=== PATIENT | female | born 1980 | race Caucasian/White ===

== ENCOUNTER 2016-10-01 12:10 | Inpatient (IN) | payer BC ==
[~2016-10-01] VITALS: Ht 165.1 cm; Wt 75.3 kg
[~2016-10-01 12:10] MED LIST: VALA500
[2016-10-05] VITALS (14 sets, daily range): BP systolic 101–133; BP diastolic 56–87; PULSE 64–110; RESP 16–18; TEMP 98–98.7
[2016-10-05] MEDS ORDERED: CALNTAB (05:39)
[2016-10-05] MEDS ORDERED: PERC5TAB12 PO (05:39)
[2016-10-05] MEDS ORDERED: ceFAZolin 2 GM PREMIX 50 ML IV SCH (06:00)
[2016-10-05] MEDS ORDERED: LACTATED RINGER'S 1000 ML IV ONE (06:00)
[2016-10-05] MEDS ORDERED: CITRIC ACID-SODIUM CITRATE LIQ 30 ML UDC PO SCH (06:00)
[2016-10-05] MEDS ORDERED: LACTATED RINGER'S 1000 ML IV SCH (06:00)
--- NOTE | 2016-10-05 06:19 | MH ---
cc: CCList DATE OF ADMISSION: 10/05/2016 DATE OF 1980 ADMISSION DIAGNOSES 1. Term . 2. Right kidney obstruction due to renal stone. 3. Previous . HISTORY OF PRESENT ILLNESS The patient is a 35-year-old white female para 1-0-1-1 with an EDC of 10/12/2016 by known IUI dates. Her course was benign until 08/19/2016 when she developed a right kidney obstruction due to a large stone, admitted to [facility], had a right percutaneous nephrostomy tube placed, has been maintained since that time for urinary drainage. ADDITIONAL PAST MEDICAL HISTORY 1. 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 2. She had breast augmentation in 2008. 3. Her first delivery by for failure to progress in 2005. 4. A spontaneous miscarriage in 2015. SOCIAL HISTORY She is homemaker, . Alcohol, tobacco and drugs are none. FAMILY HISTORY Non-contributory. PHYSICAL EXAMINATION GENERAL: This is a well-developed, well-nourished white female. HEENT EXAM: Normal. CHEST: Clear. HEART: Regular rate. BREASTS: Symmetrical. ABDOMEN: Gravid. EFW of 3300 grams. PELVIC EXAM: Cervix is closed. EXTREMITIES: Normal. ASSESSMENT As above. PLAN She is now admitted for repeat section and eventual treatment of her right kidney stone. While in the office I have explained the procedures, the risks, benefits and complications. The patient would like to proceed. MD LISET Finch/CHUCKIE /5:45 AM /6:13 AM
[2016-10-05 06:21] LABS: AUTOMATED NEUTROPHIL # 9.1 TH/MM3 (1.8-7.7); BASOPHIL % 0.4 % (0.0-2.0); EOSINOPHIL # 0.1 TH/MM3 (0-0.4); EOSINOPHIL % 0.6 % (0.0-4.0); HEMO FLAGS DIFF FINAL; LYMPH % 13.6 % (9.0-44.0); LYMPHOCYTE # 1.6 TH/MM3 (1.0-4.8); MEAN CELL VOLUME 83.2 FL (80.0-100.0); MEAN CORPUSCULAR HEMOGLOBIN 29.1 PG (27.0-34.0); MONO % 6.8 % (0.0-8.0); NEUT % 78.6 % (16.0-70.0); PLATELET COUNT 280 TH/MM3 (150-450); RED BLOOD COUNT 4.21 MIL/MM3 (4.00-5.30); RED CELL DISTRIBUTION WIDTH 15.7 % (11.6-17.2); WHITE BLOOD COUNT 11.6 TH/MM3 (4.0-11.0)
[2016-10-05 06:41] LABS: BLOOD, URINE NEG (NEG); COMMENT (UR) CULT NOT INDICATED; CULTURE IF INDICATED CULT NOT INDICATED; GLUCOSE,URINE NEG (NEG); KETONE, URINE NEG (NEG); MUCUS URINE FEW /lpf (OCC); NITRITE,URINE NEG (NEG); PH, URINE 7.5 (5.0-8.5); SQUAMOUS EPITHELIAL CELL URINE 3 /hpf (0-5); URINE COLOR YELLOW (YELLW/STRAW)
[2016-10-05] MEDS ORDERED: ACETAMINOPHEN 1000 MG/100 ML VIAL IV ONE (07:11)
[2016-10-05] MEDS ORDERED: ONDANSETRON HCL 4 MG/2 ML VIAL ONE (07:11)
[2016-10-05] MEDS ORDERED: ePHEDrine/NS 25 MG/5 ML SYR ONE (07:11)
[2016-10-05] MEDS ORDERED: MORPHINE SULFATE PF 5 MG/10 ML VIAL ONE (07:11)
[2016-10-05] MEDS ORDERED: OXYTOCIN 10 UNIT/ML AMP ONE ×2 (07:12→07:16)
[2016-10-05] MEDS ORDERED: SODIUM CHLORIDE 0.9% FLUSH 5 ML FLUSH IV PRN (07:30)
[2016-10-05] MEDS ORDERED: KETOROLAC TROMETHAMINE 60 MG/2 ML (IM) VIAL IM PRN (07:30)
[2016-10-05] MEDS ORDERED: ONDANSETRON HCL 4 MG/2 ML VIAL IVP PRN (07:30)
[2016-10-05] MEDS ORDERED: ZOLPIDEM TARTRATE 5 MG TAB PO PRN (07:30)
[2016-10-05] MEDS ORDERED: MEASLES, MUMPS, RUBELLA VACCINE 0.5 ML VIAL SQ ONE (07:30)
[2016-10-05] MEDS ORDERED: OXYTOCIN 30 UNITS-500ML PREMIX 500 ML IV ONE (07:30)
[2016-10-05] MEDS ORDERED: oxyCODONE/ACETAMINOPHEN 5 MG/325 MG TAB PO PRN (07:30)
[2016-10-05] MEDS: ACETAMINOPHEN 1000 MG/100 ML VIAL IV SCH ×3 (08:02→22:35)
--- NOTE | 2016-10-05 08:49 | MP ---
cc: ALANAKELLY DATE OF SURGERY: 10/05/2016 PREOPERATIVE DIAGNOSIS 1. Term . 2. Previous . 3. Right kidney obstruction with stone, status post right percutaneous nephrostomy placement. POSTOPERATIVE DIAGNOSIS 1. Term . 2. Previous . 3. Right kidney obstruction with stone, status post right percutaneous nephrostomy placement. 4. Delivered. PROCEDURE Repeat low transverse section. ANESTHESIA Spinal. SURGEON Kelly Lopez MD [employer] SALESPERSON RIVKA Lopez ESTIMATED BLOOD LOSS About 600 cc. FLUIDS Two liters crystalloid. OBJECTIVE FINDINGS Following the induction of adequate spinal anesthesia, the patient was prepped and draped supine on the operating table in the left lateral tilt position in the usual sterile fashion with the bladder being drained via Conrad catheterization. The abdomen was opened through a Pfannenstiel incision using a knife to excise her old scar. The fascia was opened transversely and stripped from the muscles. The rectus muscle was split in the midline and the peritoneum opened sharply without incident. The bladder flap was taken down sharply and retracted inferiorly with a [place] blade. The lower uterine segment was incised transversely with a knife and extended with blunt dissection. The membranes revealed clear fluid. The baby was in the LOT position. The vacuum extractor was applied to the occiput and used to gently lift the head through the uteroabdominal wound. The mouth was suctioned, the cord clamped and cut, and the baby passed to the awaiting team, a viable vigorous male, Apgars 9 and 9, weight 7 pounds 5 ounces. Cord blood was collected for typing. The placenta was manually removed and the uterine cavity cleaned with laps. The uterus was exteriorized and closed in two layers of running suture, the first with a running locking stitch of 3-0 Vicryl, the second with a running imbricating stitch of 3-0 Vicryl. Posterior inspection revealed the uterus, tubes and ovaries to be normal. The uterus was placed in the abdominal cavity. Irrigation was performed. No bleeding was evident. The bladder flap was closed with a running stitch of 3-0 Vicryl. Inspection revealed normal tubes and ovaries, no bleeding, normal cul-de-sacs. All instruments were removed. Counts were correct. The anterior peritoneum was closed with a running stitch of 2-0 Vicryl. The fascia was closed with a running locking stitch of 3-0 Vicryl corner to midline and tied, subcu with running 3-0 Vicryl and skin with running subcuticular 3-0 Monocryl. Dermabond was applied. All counts were correct and the patient was awake and taken to the recovery room in good condition. MD LISET Finch/STARLA /8:20 AM /8:39 AM
[2016-10-05] MEDS ORDERED: SODIUM CHLORIDE 0.9% FLUSH 5 ML FLUSH IV SCH (09:00)
[2016-10-05] MEDS ORDERED: OXYTOCIN 30 UNITS-500ML PREMIX 500 ML ONE (09:06)
[2016-10-05] MEDS ORDERED: EPIDURAL-DIPHENHYDRAMINE HCL 50 MG CAP PO PRN (11:30)
[2016-10-05] MEDS ORDERED: EPIDURAL-NO SYSTEMIC NARCOTICS XX PRN (11:30)
[2016-10-05] MEDS ORDERED: EPIDURAL-DIPHENHYDRAMINE HCL 50 MG/ML VIAL IV PUSH PRN (11:30)
[2016-10-05] MEDS ORDERED: EPIDURAL-DO NOT ADMINISTER ANTICOAGULANTS XX PRN (11:30)
[2016-10-05] MEDS ORDERED: EPIDURAL-NALOXONE HCL 0.4 MG/ML AMP IV PRN (11:30)
[2016-10-05] MEDS ORDERED: KETOROLAC TROMETHAMINE 30 MG/ML (IVP) VIAL IV PUSH PRN (12:30)
--- NOTE | 2016-10-05 12:53 | PD.CONS ---
HPI Service Urology Consult Requested By Reason for Consult Status post placement of right nephrostomy tube during recent . Primary Care Physician No Primary Care Physician Diagnosis: History of Present Illness 35-year-old female with recent history of an obstructing 8 mm right ureteral calculus that developed during her recent . Patient is status post placement of a right nephrostomy tube in early August of this year. Patient underwent delivery of her son via section early this morning and a urology consult was placed regarding further management of the right ureteral stone. Patient reports that recently she has not had any problems with the right nephrostomy tube causing any discomfort or pain in that it had been draining well. She is optimistic that perhaps she may have passed the stone. I discussed further imaging studies to reassess the stone status prior to recommending any further recommendations. Review of Systems Constitutional: DENIES: Fever, Chills Gastrointestinal: DENIES: Abdominal pain Genitourinary: DENIES: Hematuria Musculoskeletal: DENIES: Back pain Except as stated in HPI: all other systems reviewed are Neg Past Family Social History Past Medical History Right ureteral calculus Cleft palate Past Surgical History section/present admission Prior section for failure to progress in 2006 Status post recent right nephrostomy tube placement Status post repair of cleft lip/palate Reported Medications Refer to EMR Allergies: Uncoded Allergies: MEDICAL TAPE (Adverse Reaction, Unknown, Hives, 10/05/16) Active Ordered Medications Refer to EMR Family History Reviewed and noncontributory Social History Denies tobacco, alcohol or intravenous drug abuse Physical Exam Vital Signs Vital Signs Date Time Temp Pulse Resp B/P Pulse Ox O2 Delivery O2 Flow Rate FiO2 10/05/16 11:10 98.0 16 10/05/16 11:10 78 120/76 10/05/16 09:30 65 10/05/16 09:30 18 109/56 10/05/16 09:23 98.0 10/05/16 09:19 65 18 114/57 10/05/16 09:10 64 18 108/60 10/05/16 08:46 80 18 105/68 10/05/16 08:34 74 18 105/64 10/05/16 08:24 75 18 120/77 10/05/16 08:24 98.2 10/05/16 07:08 110 133/82 10/05/16 06:00 98.2 10/05/16 06:00 18 10/05/16 05:54 102 126/87 Physical Exam GENERAL: This is a well-nourished, well-developed patient, in no apparent distress. SKIN: No rashes, ecchymoses or lesions. Cool and dry. HEAD: Atraumatic. Normocephalic. No temporal or scalp tenderness. EYES: Pupils equal round and reactive. Extraocular motions intact. No scleral icterus. No injection or drainage. ENT: Nose without bleeding, purulent drainage or septal hematoma. Throat without erythema, tonsillar hypertrophy or exudate. Uvula midline. Airway patent. NECK: Trachea midline. No JVD or lymphadenopathy. Supple, nontender, no meningeal signs. CARDIOVASCULAR: Regular rate and rhythm without murmurs, gallops, or rubs. RESPIRATORY: Clear to auscultation. Breath sounds equal bilaterally. No wheezes , rales, or rhonchi. GASTROINTESTINAL: Nondistended. Surgical dressing in place. : Right nephrostomy tube in place and draining well. MUSCULOSKELETAL: Extremities without clubbing, cyanosis, or edema. No joint tenderness, effusion, or edema noted. No calf tenderness. Negative Homans sign bilaterally. NEUROLOGICAL: Awake and alert. Cranial nerves II through XII intact. Motor and sensory grossly within normal limits. Five out of 5 muscle strength in all muscle groups. Normal speech. Laboratory Laboratory Tests Test 10/05/16 06:00 White Blood Count 11.6 Red Blood Count 4.21 Hemoglobin 12.3 Hematocrit 35.0 Mean Corpuscular Volume 83.2 Mean Corpuscular Hemoglobin 29.1 Mean Corpuscular Hemoglobin 35.0 Concent Red Cell Distribution Width 15.7 Platelet Count 280 Mean Platelet Volume 6.6 Neutrophils (%) (Auto) 78.6 Lymphocytes (%) (Auto) 13.6 Monocytes (%) (Auto) 6.8 Eosinophils (%) (Auto) 0.6 Basophils (%) (Auto) 0.4 Neutrophils # (Auto) 9.1 Lymphocytes # (Auto) 1.6 Monocytes # (Auto) 0.8 Eosinophils # (Auto) 0.1 Basophils # (Auto) 0.0 CBC Comment DIFF FINAL Differential Comment Urine Color YELLOW Urine Turbidity CLEAR Urine pH 7.5 Urine Specific [place] 1.012 Urine Protein NEG Urine Glucose (UA) NEG Urine Ketones NEG Urine Occult Blood NEG Urine Nitrite NEG Urine Bilirubin NEG Urine Urobilinogen LESS THAN 2.0 Urine Leukocyte Esterase NEG Urine RBC 2 Urine WBC 3 Urine Squamous Epithelial 3 Cells Urine Mucus FEW Microscopic Urinalysis Comment CULT NOT INDICATED Blood Type A POSITIVE Antibody Screen NEGATIVE Result Diagram: 10/05/16 0600 Assessment and Plan Assessment and Plan Urologic impression: Obstructing 8 mm right ureteral calculus managed with a right nephrostomy tube placed in early August of this year. Recommendations: #1 continue right nephrostomy tube to gravity drainage #2 CT scan stone protocol to reassess stone status #3 further recommendations pending review of CT scan Maxime Deleon MD Oct 05, 2016 12:53
[2016-10-05] MEDS ORDERED: LACTATED RINGER'S 1000 ML INJ 1,000 ML IV SCH (13:04)
[2016-10-05] MEDS ORDERED: OXYTOCIN 30 UNITS-500ML PREMIX 500 ML IV PRN (18:15)
[2016-10-06] MEDS: oxyCODONE/ACETAMINOPHEN 5 MG/325 MG TAB PO PRN ×4 (02:35→21:13)
[2016-10-06] MEDS: DOCUSATE SODIUM 50 MG/SENNA 8.6 MG TAB PO PRN ×3 (02:36→21:13)
[2016-10-06 03:45] VITALS: BP 121/77; PULSE 74; RESP 20; TEMP 98.1
[2016-10-06 06:02] LABS: AUTOMATED NEUTROPHIL # 9.6 TH/MM3 (1.8-7.7); BASOPHIL % 0.3 % (0.0-2.0); EOSINOPHIL # 0.2 TH/MM3 (0-0.4); EOSINOPHIL % 1.7 % (0.0-4.0); HEMATOCRIT 31.1 % (35.0-46.0); HEMO FLAGS DIFF FINAL; LYMPH % 11.9 % (9.0-44.0); LYMPHOCYTE # 1.4 TH/MM3 (1.0-4.8); MEAN CORPUSCULAR HGB CONC 34.1 % (32.0-36.0); NEUT % 80.1 % (16.0-70.0); PLATELET COUNT 233 TH/MM3 (150-450); RED BLOOD COUNT 3.66 MIL/MM3 (4.00-5.30); RED CELL DISTRIBUTION WIDTH 15.9 % (11.6-17.2)
[2016-10-06 06:36] LABS: BICARBONATE 27.5 MEQ/L (21.0-32.0); POTASSIUM 3.7 MEQ/L (3.5-5.1)
[2016-10-06] MEDS: IBUPROFEN 600 MG TAB PO PRN ×3 (07:56→21:13)
[2016-10-06 08:00] VITALS: BP 118/76; PULSE 84; RESP 18; TEMP 98.3
--- NOTE | 2016-10-06 09:26 | RADRPT ---
EXAM DATE/TIME: 10/06/2016 08:51 [facility] COMPARISON: No previous studies available for comparison. INDICATIONS : Status post right nephrostomy tube. Evaluate if stones are still present. ORAL CONTRAST: No oral contrast ingested. RADIATION DOSE: 15.21 CTDIvol (mGy) MEDICAL HISTORY : Renal calculi. SURGICAL HISTORY : section. ENCOUNTER: Initial ACUITY: 4 - 6 days PAIN SCALE: 3/10 LOCATION: Right flank TECHNIQUE: Volumetric scanning of the abdomen and pelvis was performed. Using automated exposure control and ad justment of the mA and/or kV according to patient size, radiation dose was kept as low as reasonably achievable to obtain optimal diagnostic quality images. FINDINGS: LOWER LUNGS: The visualized lower lungs are clear. LIVER: Homogeneous density without lesion. There is no dilation of the biliary tree. No calcified gallston es. SPLEEN: Normal size without lesion. PANCREAS: Within normal limits. KIDNEYS: Normal in size and shape. There is no mass or hydronephrosis. Percutaneous nephrostomy tube on the r ight. There are 2 punctate right-sided renal calculi measuring 2-3 mm. Several nonobstructing left-si ded renal calculi measuring 2-3 mm. No ureteral calculi. No hydronephrosis. ADRENAL GLANDS: Within normal limits. VASCULAR: There is no aortic aneurysm. BOWEL/MESENTERY: The stomach, small bowel, and colon demonstrate no acute abnormality. There is no free intraperitone al air or fluid. ABDOMINAL WALL: Postsurgical changes from recent section. RETROPERITONEUM: There is no lymphadenopathy. BLADDER: No wall thickening or mass. REPRODUCTIVE: Pneumoperitoneum. Enlarged uterus containing air within the endometrial cavity consistent with recent section. Minimal pelvic free fluid. INGUINAL: There is no lymphadenopathy or hernia. MUSCULOSKELETAL: Within normal limits for patient age. CONCLUSION: 1. Right nephrostomy tube without hydronephrosis. There are 2 punctate nonobstructing right-sided mallory al calculi. 2. Several punctate nonobstructing left-sided renal calculi. 3. Postsurgical changes and recent section. 4. Bibasilar atelectasis. Dariel Lucero MD on October 06, 2016 at 9:15 Board Certified Radiologist. This report was verified electronically.
--- NOTE | 2016-10-06 10:42 | HHI.PR ---
Subjective Remarks Denies any urologic complaints Objective Vital Signs Vital Signs Date Time Temp Pulse Resp B/P Pulse Ox O2 Delivery O2 Flow Rate FiO2 10/06/16 08:00 98.3 84 18 118/76 10/06/16 03:45 98.1 74 20 121/77 10/05/16 23:00 98.7 88 18 101/57 10/05/16 19:35 98.4 10/05/16 19:35 86 17 103/62 10/05/16 15:50 98.7 89 16 105/66 10/05/16 11:10 98.0 16 10/05/16 11:10 78 120/76 Result Diagram: 10/06/16 0530 10/06/[address] scan performed today and demonstrated bilateral punctate renal calculi. The previous obstructing 8 mm right sided stone was no longer present. Right nephrostomy tube in good position. Assessment and Plan Assessment and Plan Urologic impression: #1 the previous 8mm obstructing right ureteral calculus is no longer present #2 bilateral punctate nonobstructing renal calculi Recommendations: #1 interventional radiology to remove the right nephrostomy tube under fluoroscopy #2 will prescribe Urocit-K to aid in further kidney stone prevention #3 office follow up in 2-3 weeks to inspect nephrostomy tube site #4 will obtain a follow up KUB study in one year to reassess stone status Maxime Deleon MD Oct 06, 2016 10:42
[2016-10-06] MEDS ORDERED: UROCTAB2 PO (10:45)
[2016-10-06] MEDS ORDERED: IOHEXOL 350 MG/ML 50 ML BTL (for RAD DIAG) ONE (17:52)
[2016-10-06 20:00] VITALS: BP 112/68; PULSE 85; RESP 18; TEMP 98.3
[2016-10-06] MEDS: SIMETHICONE 80 MG CHEWABLE TAB PO PRN (21:13)
[2016-10-07] MEDS: oxyCODONE/ACETAMINOPHEN 5 MG/325 MG TAB PO PRN (04:56)
[2016-10-07] MEDS: SIMETHICONE 80 MG CHEWABLE TAB PO PRN (04:56)
[2016-10-07] MEDS: IBUPROFEN 600 MG TAB PO PRN (04:56)
[2016-10-07 05:00] VITALS: BP 137/84; PULSE 79; RESP 20; TEMP 98.2
--- NOTE | 2016-10-07 08:22 | HHI.DCPOC ---
Discharge Care Plan Report Symptoms to Your Doctor -Temperate above 100.5 degrees -Redness, of incision or excessive or foul smelling drainage -Unusual pain or calf pain -Increased vaginal bleeding -Painful or difficulty urinating -Feelings of extreme sadness or anxiety after 2 weeks Goals to Promote Your Health * To prevent worsening of your condition and complications * To maintain your health at the optimal level Directions to Meet Your Goals Take your medications as prescribed Follow your dietary instruction Follow activity as directed Ensure plenty of rest for recovery Drink fluids for hydration Keep your appointments as scheduled Take your immunizations and boosters as scheduled If your symptoms worsen call your PCP, if no PCP go to Urgent Care Center or Emergency Room Smoking is Dangerous to Your Health. Avoid second hand smoke Call the 24-hour crisis hotline for domestic abuse at Pal Lopez MD Oct 07, 2016 08:22
[2016-10-07 08:30] VITALS: BP 118/74; PULSE 95; RESP 16; TEMP 97.8
[2016-10-07] MEDS ORDERED: DIPHTH/TETANUS/ACEL PERTUSSIS (BOOSTER) 0.5 ML VIAL/PFS IM ONE (09:00)
--- NOTE | 2016-10-07 09:59 | RADRPT ---
EXAM DATE/TIME: 10/06/2016 17:17 [facility] COMPARISON: No previous studies available for comparison. INDICATIONS : Patient with history of right kidney obstruction in need of nephrostomy tube evaluation and removal. MEDICAL HISTORY : Right kidney obstruction due to renal stone SURGICAL HISTORY : Breast augmentation, Congenital cleft lip and palate repair, Spontaneous miscarriage 2015, 2005 and 2016, Nephrostomy tube placement ENCOUNTER: Initial ACUITY: 1 month PAIN SCORE: 4/10 LOCATION: Abdomen FLUORO TIME: 0.5 minutes CONTRAST: 5 cc Omnipaque (iohexol) 350 PROCEDURE : 1. Antegrade pyelogram. 2. Nephrostomy tube removal. The risks, benefits and alternatives to the procedure were explained and verbal and written consent w as obtained. The site was prepped in sterile fashion. Full sterile technique was used, including ca p, mask, sterile gloves and gown and a large sterile sheet. Hand hygiene and 2% chlorhexidine and/or betadine/alcohol prep was utilized per protocol for cutaneous antisepsis. The skin and subcutaneous tissues were infiltrated with local anesthetic solution. With fluoroscopic guidance the existing nephrostomy catheter was injected. Contrast injection shows the collecting system to be free of obstruction, therefore the tube was removed. Direct manual press ure was applied to the site. There is no evidence of hydronephrosis and the ureter is patent to the bladder. There were no complications and the patient was sent to post anesthesia recovery in stable condition. CONCLUSION: 1. No evidence of obstruction. The nephrostomy was removed Agus Mcnally MD on October 07, 2016 at 9:57 Board Certified Radiologist. This report was verified electronically.
--- NOTE | 2016-10-12 05:23 | MD ---
cc: KELLY WARNER M.D., BENNETT P. MD ADMISSION DATE: 10/05/2016 DISCHARGE DATE: 10/07/2016 ADMISSION DIAGNOSES 1. Term . 2. Previous . 3. Right kidney stones status post right percutaneous nephrostomy tube placement. DISCHARGE DIAGNOSES 1. Term . 2. Previous . 3. Right kidney stones status post right percutaneous nephrostomy tube placement. PROCEDURES 1. Repeat low transverse section on 10/05/2016. 2. Removal of nephrostomy tube on 10/06/2016. HISTORY OF PRESENT ILLNESS A 35-year-old white female para 1-0-1-1 had through IUI with the [facility] with known EDC of 10/12/2016. Her course was benign until she developed a right ureteral obstruction due to kidney stones in August of 2016. She was hospitalized at [facility], had right nephrostomy tube placed and did well. She was admitted for repeat section on 10/05/2016, had delivery of a viable, vigorous male, Apgars 9 and 9, weight 7 pounds, 5 ounces. On the first postoperative day Dr. Deleon had a CT scan performed which showed that the stone has passed. The nephrostomy tube was removed and she was discharged home in excellent condition on 10/07/2016. Her pre and postop labs were normal. DISCHARGE INSTRUCTIONS She was advised NPV, light activity, no driving, to return to see me in one week. She was to call for abnormal pain, bleeding, temperature or signs of infection or depression. Circumcision was declined. She has Percocet pills available at home for pain relief or will use Motrin [id number] as needed. She is to call if any abnormal symptoms. Kelly Warner MD JAW/SSB /8:19 AM /5:16 AM
== END 2016-10-07 12:39 | disposition home or self-care (01) | DRG 765 ==
LOC: H2EB 10-05 05:19 → H1EA 10-05 09:50
PROVIDERS: ADMIT Obstetrics & Gynecology; ATTEND Obstetrics & Gynecology
PROC: 10D00Z1 Extraction of Products of Conception, Low, Open Approach (ICD-10-PCS; principal; 2016-10-05)
PROC: BT1D1ZZ Fluoroscopy of Right Kidney, Ureter and Bladder using Low Osmolar Contrast (ICD-10-PCS; 2016-10-07)
PROC: 0TP5X0Z Removal of Drainage Device from Kidney, External Approach (ICD-10-PCS; 2016-10-07)
DX: O34.211 Maternal care for low transverse scar from previous cesarean delivery (principal); O26.833 Pregnancy related renal disease, third trimester; N20.0 Calculus of kidney; Z93.6 Other artificial openings of urinary tract status; Z37.0 Single live birth; Z3A.39 39 weeks gestation of pregnancy
CPT/HCPCS: 50389; 50431; 74176; 80048; 81001; 85025; 86850; 86900; 86901; 88304; J0131; J0690; J2274; J2405; J2590; J7120; Q9967

== ENCOUNTER 2018-02-04 08:19 | Inpatient (IN) ==
[2018-02-05] MEDS ORDERED: Naloxone Inj 0.4 MG/ML Vial IV.PUSH PRN (16:01)
[2018-02-06] MEDS ORDERED: IBU PO PRN
[2018-02-06] MEDS ORDERED: Ketorolac Inj 30 MG/ML (IVP) Vial IV.PUSH PRN
[2018-02-06] MEDS ORDERED: Senna/Docusate Sodium 8.6/50 MG Tablet PO PRN
[2018-02-06] MEDS ORDERED: Witch Hazel 50%/Glyderin 12.5% 40 Pad Jar RECTAL PRN (00:01)
[2018-02-06] MEDS ORDERED: Diphtheria/Tetanus/Pertussis Vaccine Inj 0.5 ML Syringe IM ONE (00:01)
[2018-02-06] MEDS ORDERED: Zolpidem Tartrate 5 MG Tablet PO PRN (00:01)
[2018-02-06] MEDS ORDERED: Ibuprofen 600 MG Tablet ONE (01:53)
[2018-02-06] MEDS: IBU PO PRN ×3 (02:00→15:25)
[2018-02-06] MEDS: Simethicone 80 MG Chew Tablet PO PRN ×2 (09:00→15:24)
--- NOTE | 2018-02-06 11:24 | MD ---
cc: Pal Lopez MD DATE OF DISCHARGE: ADMITTING DIAGNOSES: 1. at 37 weeks. 2. Oligohydramnios. 3. Previous section x 2. 4. Advance maternal age of 37. DISCHARGE DIAGNOSES: 1. at 37 weeks. 2. Oligohydramnios. 3. Previous section x 2. 4. Advance maternal age of 37. 5. Delivered. HISTORY OF PRESENT ILLNESS AND HOSPITAL COURSE: This 37-year-old white female, para 2-0-0-2, had a biophysical profile date of admission that showed an JAMIE of 4.6 and she was admitted for repeat section. On the evening of 02/04/2018, had a viable vigorous male, Apgars 8 and 9, weight 6 pounds 3 ounces. did well. Discharged home in excellent condition on 02/06/2018. Advised NPV, light activity, no driving, return to see me in 1 week. She was given a prescription for Percocet 5 one p.o. every 4 hours p.r.n. pain, #18 label, no refills and the PDNP was queried to ensure there were no other conflicting prescriptions. MD LISET Finch/HERNANDEZ , 11:01 AM , 11:23 AM
== END 2018-02-06 17:25 | disposition home or self-care (01) ==
LOC: UNDODISIN → H1EA 09:59
PROVIDERS: ADMIT Obstetrics & Gynecology; ATTEND Obstetrics & Gynecology